=== PATIENT | female | born 1970 | race Two or more races ===

== ENCOUNTER → 2017-04-23 | Outpatient (CLI) | payer OTHER ==
--- NOTE | ~2017-04-23 | MY29 ---
[facility] A Service of [facility] RADIOLOGY TEXT RESULTS PATIENT: LE MCLAUGHLIN LOCATION: [facility] : 70 UNIT #: [id number] AGE: [address]: KENNETH NOVA APRN SEX: F ORDER DR: [id number] [facility] [address] [place], [place] [address] [id number] O MR#: [id number] Acc #: [id number] NAME: LE MCLAUGHLIN : 1970 SEX: F STUDY DATE/TIME: 04/23/2017 12:16 UNIT: [facility] ROOM: STUDY DESCRIPTION: [facility] SCREENING W/ CAD BILAT Attending Physician: Hermila Nova M.D. Referring Physician: El Walters M.D. Ordering Physician: Hermila Nova M.D. Primary Care Physician: El Walters M.D. MEDICAL IMAGING REPORT This report is preliminary unless electronic signature is present EXAM Digital screening mammogram 04/23/2017 HISTORY 46-year-old woman, baseline mammogram. Prior reduction mammoplasties. Painful breast. COMPARISON None FINDINGS Digital imaging of each breast was completed utilizing a two-view examination of each breast in craniocaudal and mediolateral-oblique projections. Review and interpretation of digital mammograms include a second review in conjunction with FDA-approved CAD device. There is a normal parenchymal presentation bilaterally consistent with the patient's age. There are no breast masses imaged and no parenchymal asymmetry is visualized. There are no suspicious microcalcifications and I see no focal architectural disturbance. IMPRESSION Negative screening digital mammogram. One-year followup recommended. Patients over the age of 40 are entered into a reminder system with target due date for the next mammogram. A result letter will also be sent to the patient. BIRADS: 1 Negative Dictated by... Rc Mcrae M.D. THIS IS AN ELECTRONICALLY VERIFIED REPORT [facility] A Service of [facility] RADIOLOGY TEXT RESULTS PATIENT: LE MCLAU[facility]HLIN [id number] : 70 UNIT #: [id number] AGE: [address]: KENNETH NOVA APRN SEX: F ORDER DR: Rc Mcrae M.D. at 04/24/2017 8:10 AM Caron TD: 04/23/2017 18:56 JOB #: [id number] MEDICAL IMAGING REPORT Page 1 of 1 COPY
== END | disposition home or self-care (01) ==
LOC: CWCC 11:57
DX: Z12.31 Encounter for screening mammogram for malignant neoplasm of breast (principal); N64.4 Mastodynia
CPT/HCPCS: G0202